=== PATIENT | male | born 1940 | race Caucasian/White ===

== ENCOUNTER 2018-02-25 09:40 | Day surgery (SDC) | payer MEDICARE, BC ==
[~2018-02-25 09:40] MED LIST: CHOL100046 PO; CITA10TA9 PO; CLOP75TA35 PO; CYAN-19 PO; FLO0.4C PO; GABA-338 PO; NIA500ERT PO; TIM0.5OS OP; VITC500T PO
== END 2018-02-25 12:27 | disposition home or self-care (01) ==
LOC: WOUND CARE 09:40
PROVIDERS: ATTEND Surgery
DX: E11.621 Type 2 diabetes mellitus with foot ulcer (principal); L89.893 Pressure ulcer of other site, stage 3; L97.521 Non-pressure chronic ulcer of other part of left foot limited to breakdown of skin; L89.892 Pressure ulcer of other site, stage 2; L97.511 Non-pressure chronic ulcer of other part of right foot limited to breakdown of skin; E11.40 Type 2 diabetes mellitus with diabetic neuropathy, unspecified; I25.10 Atherosclerotic heart disease of native coronary artery without angina pectoris; I10 Essential (primary) hypertension; G47.30 Sleep apnea, unspecified; M10.9 Gout, unspecified; E78.00 Pure hypercholesterolemia, unspecified; F03.90 Unspecified dementia, unspecified severity, without behavioral disturbance, psychotic disturbance, mood disturbance, and anxiety; F32.9 Major depressive disorder, single episode, unspecified; Z79.899 Other long term (current) drug therapy; Z85.528 Personal history of other malignant neoplasm of kidney; Z90.5 Acquired absence of kidney; Z79.01 Long term (current) use of anticoagulants; Z95.1 Presence of aortocoronary bypass graft
CPT/HCPCS: 11042; 87070; 87075; 87077; 87102; 87176; 87186; A6021; A6222; L3260

== ENCOUNTER 2018-03-07 11:29 | Day surgery (SDC) | payer MEDICARE, BC ==
[2018-03-07] MEDS ORDERED: LIDOcaine 2% 5ml jelly ONE (12:53)
== END 2018-03-07 13:54 | disposition home or self-care (01) ==
LOC: WOUND CARE 11:29
PROVIDERS: ATTEND Surgery
DX: E11.621 Type 2 diabetes mellitus with foot ulcer (principal); L89.893 Pressure ulcer of other site, stage 3; L97.521 Non-pressure chronic ulcer of other part of left foot limited to breakdown of skin; L89.892 Pressure ulcer of other site, stage 2; L97.511 Non-pressure chronic ulcer of other part of right foot limited to breakdown of skin; E11.40 Type 2 diabetes mellitus with diabetic neuropathy, unspecified; I25.10 Atherosclerotic heart disease of native coronary artery without angina pectoris; I10 Essential (primary) hypertension; G47.30 Sleep apnea, unspecified; M10.9 Gout, unspecified; E78.00 Pure hypercholesterolemia, unspecified; F03.90 Unspecified dementia, unspecified severity, without behavioral disturbance, psychotic disturbance, mood disturbance, and anxiety; F32.9 Major depressive disorder, single episode, unspecified; Z79.899 Other long term (current) drug therapy; Z85.528 Personal history of other malignant neoplasm of kidney; Z90.5 Acquired absence of kidney; Z79.01 Long term (current) use of anticoagulants; Z95.1 Presence of aortocoronary bypass graft
CPT/HCPCS: 11042; A6021; A6206; A6209

== ENCOUNTER 2018-03-14 11:22 | Outpatient (CLI) | payer MEDICARE, BC | END 2018-03-14 12:40 | disposition home or self-care (01) | LOC: WOUND CARE 11:22 → EDSTATUS 11:30 → WOUND CARE 12:40 | PROVIDERS: ATTEND Surgery | DX: E11.621 Type 2 diabetes mellitus with foot ulcer (principal); L89.893 Pressure ulcer of other site, stage 3; L97.521 Non-pressure chronic ulcer of other part of left foot limited to breakdown of skin; L89.892 Pressure ulcer of other site, stage 2; L97.511 Non-pressure chronic ulcer of other part of right foot limited to breakdown of skin; E11.40 Type 2 diabetes mellitus with diabetic neuropathy, unspecified; I25.10 Atherosclerotic heart disease of native coronary artery without angina pectoris; I10 Essential (primary) hypertension; G47.30 Sleep apnea, unspecified; M10.9 Gout, unspecified; E78.00 Pure hypercholesterolemia, unspecified; F03.90 Unspecified dementia, unspecified severity, without behavioral disturbance, psychotic disturbance, mood disturbance, and anxiety; F32.9 Major depressive disorder, single episode, unspecified; Z79.899 Other long term (current) drug therapy; Z85.828 Personal history of other malignant neoplasm of skin; Z90.5 Acquired absence of kidney; Z79.01 Long term (current) use of anticoagulants; Z95.1 Presence of aortocoronary bypass graft | CPT/HCPCS: 36415; 83036; 99211; A4414; A6021; A6206 ==

== ENCOUNTER 2018-03-21 11:32 | Day surgery (SDC) | payer MEDICARE, BC ==
[2018-03-21] MEDS ORDERED: LIDOcaine 2% 5ml jelly ONE (12:02)
== END 2018-03-21 13:06 | disposition home or self-care (01) ==
LOC: WOUND CARE 11:32
PROVIDERS: ATTEND Surgery
DX: E11.621 Type 2 diabetes mellitus with foot ulcer (principal); L89.893 Pressure ulcer of other site, stage 3; L97.521 Non-pressure chronic ulcer of other part of left foot limited to breakdown of skin; L89.892 Pressure ulcer of other site, stage 2; L97.511 Non-pressure chronic ulcer of other part of right foot limited to breakdown of skin; E11.40 Type 2 diabetes mellitus with diabetic neuropathy, unspecified; E11.65 Type 2 diabetes mellitus with hyperglycemia; I25.10 Atherosclerotic heart disease of native coronary artery without angina pectoris; I10 Essential (primary) hypertension; G47.30 Sleep apnea, unspecified; M10.9 Gout, unspecified; E78.00 Pure hypercholesterolemia, unspecified; F03.90 Unspecified dementia, unspecified severity, without behavioral disturbance, psychotic disturbance, mood disturbance, and anxiety; F32.9 Major depressive disorder, single episode, unspecified; Z79.899 Other long term (current) drug therapy; Z85.828 Personal history of other malignant neoplasm of skin; Z90.5 Acquired absence of kidney; Z79.01 Long term (current) use of anticoagulants; Z95.1 Presence of aortocoronary bypass graft
CPT/HCPCS: 11042; 36416; 82948; A6021; A6206; A6209

== ENCOUNTER 2018-03-28 11:31 | Day surgery (SDC) | payer MEDICARE, BC | END 2018-03-28 13:29 | disposition home or self-care (01) | LOC: WOUND CARE 11:31 | PROVIDERS: ATTEND Surgery | DX: E11.621 Type 2 diabetes mellitus with foot ulcer (principal); L89.893 Pressure ulcer of other site, stage 3; L97.521 Non-pressure chronic ulcer of other part of left foot limited to breakdown of skin; L89.892 Pressure ulcer of other site, stage 2; L97.511 Non-pressure chronic ulcer of other part of right foot limited to breakdown of skin; E11.40 Type 2 diabetes mellitus with diabetic neuropathy, unspecified; E11.65 Type 2 diabetes mellitus with hyperglycemia; I25.10 Atherosclerotic heart disease of native coronary artery without angina pectoris; I10 Essential (primary) hypertension; G47.30 Sleep apnea, unspecified; M10.9 Gout, unspecified; E78.00 Pure hypercholesterolemia, unspecified; F03.90 Unspecified dementia, unspecified severity, without behavioral disturbance, psychotic disturbance, mood disturbance, and anxiety; F32.9 Major depressive disorder, single episode, unspecified; Z79.899 Other long term (current) drug therapy; Z85.828 Personal history of other malignant neoplasm of skin; Z90.5 Acquired absence of kidney; Z79.01 Long term (current) use of anticoagulants; Z95.1 Presence of aortocoronary bypass graft | CPT/HCPCS: 11044; 36416; 82948; A4414; A6021; A6212; A6222; 88305; 88311 ==

== ENCOUNTER 2018-04-02 15:32 | Emergency (ER) | payer MEDICARE, BC ==
[~2018-04-02] VITALS: Ht 165.1 cm; Wt 72.0 kg
[2018-04-02 16:37] LABS: BASOPHILS # (AUTO) 0.1 X10'3 (0-0.2); BASOPHILS % (AUTO) 0.4 % (0-1); EOSINOPHILS # (AUTO) 0.1 X10'3 (0-0.9); EOSINOPHILS % (AUTO) 0.6 % (0-6); HEMATOCRIT 32.2 % (42.0-52.0); HEMOGLOBIN 10.7 g/dl (14.0-17.9); LYMPHOCYTES # (AUTO) 3.2 X10'3 (1.1-4.8); LYMPHOCYTES % (AUTO) 24.3 % (21-51); MEAN CORPUSCULAR HEMOGLOBIN 27.8 PG (27.0-31.0); MEAN CORPUSCULAR HGB CONC 33.4 % (33.0-36.5); MEAN CORPUSCULAR VOLUME 83.2 FL (78-98); MEAN PLATELET VOLUME 8.3 FL (7.4-10.4); MONOCYTES # (AUTO) 1.1 X10'3 (0-0.9); MONOCYTES % (AUTO) 8.6 % (2-12); NEUTROPHILS # (AUTO) 8.6 X10'3 (1.8-7.7); NEUTROPHILS % (AUTO) 66.1 % (42-75); PLATELET COUNT 325 X10'3 (140-440); RED BLOOD COUNT 3.87 X10'6 (4.70-6.10); RED CELL DISTRIBUTION WIDTH 14.4 % (11.5-14.5)
[2018-04-02 16:46] LABS: PARTIAL THROMBOPLASTIN TIME 28 SECONDS (22-32); PROTHROMBIN TIME 10.5 SECONDS (9.0-12.0)
[2018-04-02 16:52] LABS: ALANINE AMINOTRANSFERASE 26 U/L (12-78); ALBUMIN 2.9 G/DL (3.4-5.0); ALBUMIN/GLOBULIN RATIO 0.6 (1.1-1.5); ALKALINE PHOSPHATASE 69 IU/L (46-116); ANION GAP 13 (8-16); ASPARTATE AMINO TRANSFERASE 21 U/L (10-37); BILIRUBIN,TOTAL 0.4 MG/DL (0.1-1.0); BLOOD UREA NITROGEN 29 MG/DL (7-18); BUN/CREATININE RATIO 21.5 (5.4-32.0); CALCIUM 9.4 MG/DL (8.5-10.1); CHLORIDE 101 MMOL/L (99-107); CREATININE 1.35 MG/DL (0.60-1.10); GLUCOSE 103 MG/DL (70-104); POTASSIUM 3.9 MMOL/L (3.5-5.1); SODIUM 138 MMOL/L (135-145); TOTAL CARBON DIOXIDE 24.4 MMOL/L (24-32); TOTAL PROTEIN 7.9 G/DL (6.4-8.2); eGFR 51 ML/MIN
[2018-04-02] MEDS ORDERED: levoFLOXACIN 500mg tablet PO ONE (17:10)
[2018-04-02] MEDS ORDERED: cephalexin 500mg capsule PO ONE (17:10)
[2018-04-02] MEDS ORDERED: CEPH500C5 PO (17:14)
[2018-04-02] MEDS ORDERED: LEVO250T2 PO (17:14)
[2018-04-02 17:52] VITALS: BP 132/79
== END 2018-04-02 17:54 | disposition home or self-care (01) ==
LOC: ER 15:33
DX: L03.116 Cellulitis of left lower limb (principal); I10 Essential (primary) hypertension; Z95.5 Presence of coronary angioplasty implant and graft; Z95.1 Presence of aortocoronary bypass graft; Z88.2 Allergy status to sulfonamides; Z79.899 Other long term (current) drug therapy
CPT/HCPCS: 36415; 80053; 83605; 84145; 85025; 85610; 85730; 87040; 99284; A6255; A6449

== ENCOUNTER 2018-04-04 11:42 | Day surgery (SDC) | payer MEDICARE, BC ==
[~2018-04-04 11:42] MED LIST changes: +CEPH500C5 PO; +LEVO250T2 PO
[2018-04-04] MEDS ORDERED: LIDOcaine 2% 5ml jelly ONE (12:21)
== END 2018-04-04 13:14 | disposition home or self-care (01) ==
LOC: WOUND CARE 11:42
PROVIDERS: ATTEND Surgery
DX: E11.621 Type 2 diabetes mellitus with foot ulcer (principal); L89.893 Pressure ulcer of other site, stage 3; L97.521 Non-pressure chronic ulcer of other part of left foot limited to breakdown of skin; L89.892 Pressure ulcer of other site, stage 2; L97.518 Non-pressure chronic ulcer of other part of right foot with other specified severity; E11.40 Type 2 diabetes mellitus with diabetic neuropathy, unspecified; E11.65 Type 2 diabetes mellitus with hyperglycemia; I25.10 Atherosclerotic heart disease of native coronary artery without angina pectoris; I10 Essential (primary) hypertension; G47.30 Sleep apnea, unspecified; M10.9 Gout, unspecified; E78.00 Pure hypercholesterolemia, unspecified; F03.90 Unspecified dementia, unspecified severity, without behavioral disturbance, psychotic disturbance, mood disturbance, and anxiety; F32.9 Major depressive disorder, single episode, unspecified; Z79.899 Other long term (current) drug therapy; Z85.828 Personal history of other malignant neoplasm of skin; Z90.5 Acquired absence of kidney; Z79.01 Long term (current) use of anticoagulants; Z95.1 Presence of aortocoronary bypass graft
CPT/HCPCS: 11043; 36416; 82948; A6021; A6206; A6209

== ENCOUNTER 2018-04-18 11:55 | Day surgery (SDC) | payer MEDICARE, BC ==
[2018-04-18] MEDS: LIDOcaine 2% 5ml jelly ONE (12:18)
== END 2018-04-18 13:36 | disposition home or self-care (01) ==
LOC: WOUND CARE 11:55
PROVIDERS: ATTEND Surgery
DX: E11.621 Type 2 diabetes mellitus with foot ulcer (principal); L89.893 Pressure ulcer of other site, stage 3; L97.521 Non-pressure chronic ulcer of other part of left foot limited to breakdown of skin; L89.892 Pressure ulcer of other site, stage 2; L97.512 Non-pressure chronic ulcer of other part of right foot with fat layer exposed; E11.40 Type 2 diabetes mellitus with diabetic neuropathy, unspecified; E11.65 Type 2 diabetes mellitus with hyperglycemia; I25.10 Atherosclerotic heart disease of native coronary artery without angina pectoris; I10 Essential (primary) hypertension; G47.30 Sleep apnea, unspecified; M10.9 Gout, unspecified; E78.00 Pure hypercholesterolemia, unspecified; F03.90 Unspecified dementia, unspecified severity, without behavioral disturbance, psychotic disturbance, mood disturbance, and anxiety; F32.9 Major depressive disorder, single episode, unspecified; Z79.899 Other long term (current) drug therapy; Z85.828 Personal history of other malignant neoplasm of skin; Z90.5 Acquired absence of kidney; Z79.01 Long term (current) use of anticoagulants; Z95.1 Presence of aortocoronary bypass graft
CPT/HCPCS: 11042; 36416; 82948; A6021; A6206; A6209; A6222

== ENCOUNTER 2018-04-25 11:35 | Day surgery (SDC) | payer MEDICARE, BC | END 2018-04-25 13:05 | disposition home or self-care (01) | LOC: WOUND CARE 11:35 | PROVIDERS: ATTEND Surgery | DX: E11.621 Type 2 diabetes mellitus with foot ulcer (principal); L89.893 Pressure ulcer of other site, stage 3; L97.521 Non-pressure chronic ulcer of other part of left foot limited to breakdown of skin; L89.892 Pressure ulcer of other site, stage 2; L97.512 Non-pressure chronic ulcer of other part of right foot with fat layer exposed; E11.40 Type 2 diabetes mellitus with diabetic neuropathy, unspecified; E11.65 Type 2 diabetes mellitus with hyperglycemia; I25.10 Atherosclerotic heart disease of native coronary artery without angina pectoris; I10 Essential (primary) hypertension; G47.30 Sleep apnea, unspecified; M10.9 Gout, unspecified; E78.00 Pure hypercholesterolemia, unspecified; F03.90 Unspecified dementia, unspecified severity, without behavioral disturbance, psychotic disturbance, mood disturbance, and anxiety; F32.9 Major depressive disorder, single episode, unspecified; Z79.899 Other long term (current) drug therapy; Z85.828 Personal history of other malignant neoplasm of skin; Z90.5 Acquired absence of kidney; Z79.01 Long term (current) use of anticoagulants; Z95.1 Presence of aortocoronary bypass graft | CPT/HCPCS: 11042; 36416; 82948; A4414; A6021; A6209; A6222; A6446 ==

== ENCOUNTER 2018-05-02 11:39 | Day surgery (SDC) | payer MEDICARE, BC | END 2018-05-02 13:02 | disposition home or self-care (01) | LOC: WOUND CARE 11:39 | PROVIDERS: ATTEND Surgery | DX: E11.621 Type 2 diabetes mellitus with foot ulcer (principal); L89.893 Pressure ulcer of other site, stage 3; L97.521 Non-pressure chronic ulcer of other part of left foot limited to breakdown of skin; L89.892 Pressure ulcer of other site, stage 2; L97.512 Non-pressure chronic ulcer of other part of right foot with fat layer exposed; E11.40 Type 2 diabetes mellitus with diabetic neuropathy, unspecified; E11.65 Type 2 diabetes mellitus with hyperglycemia; I25.10 Atherosclerotic heart disease of native coronary artery without angina pectoris; I10 Essential (primary) hypertension; G47.30 Sleep apnea, unspecified; M10.9 Gout, unspecified; E78.00 Pure hypercholesterolemia, unspecified; F03.90 Unspecified dementia, unspecified severity, without behavioral disturbance, psychotic disturbance, mood disturbance, and anxiety; F32.9 Major depressive disorder, single episode, unspecified; Z79.899 Other long term (current) drug therapy; Z85.828 Personal history of other malignant neoplasm of skin; Z90.5 Acquired absence of kidney; Z79.01 Long term (current) use of anticoagulants; Z95.1 Presence of aortocoronary bypass graft | CPT/HCPCS: 15275; 36416; 82948; A6209; A6222; A6446; Q4131 ==

== ENCOUNTER 2018-05-09 11:41 | Day surgery (SDC) | payer MEDICARE, BC ==
[~2018-05-09 11:41] MED LIST changes: -LEVO250T2 PO
[2018-05-09] MEDS ORDERED: LIDOcaine/PRILOcaine 5gm cream TP ONE (12:14)
== END 2018-05-09 12:41 | disposition home or self-care (01) ==
LOC: WOUND CARE 11:41
PROVIDERS: ATTEND Surgery
DX: E11.621 Type 2 diabetes mellitus with foot ulcer (principal); L89.893 Pressure ulcer of other site, stage 3; L97.522 Non-pressure chronic ulcer of other part of left foot with fat layer exposed; L89.892 Pressure ulcer of other site, stage 2; L97.512 Non-pressure chronic ulcer of other part of right foot with fat layer exposed; E11.40 Type 2 diabetes mellitus with diabetic neuropathy, unspecified; E11.65 Type 2 diabetes mellitus with hyperglycemia; I25.10 Atherosclerotic heart disease of native coronary artery without angina pectoris; I10 Essential (primary) hypertension; G47.30 Sleep apnea, unspecified; M10.9 Gout, unspecified; E78.00 Pure hypercholesterolemia, unspecified; F03.90 Unspecified dementia, unspecified severity, without behavioral disturbance, psychotic disturbance, mood disturbance, and anxiety; F32.9 Major depressive disorder, single episode, unspecified; Z79.899 Other long term (current) drug therapy; Z85.828 Personal history of other malignant neoplasm of skin; Z90.5 Acquired absence of kidney; Z79.01 Long term (current) use of anticoagulants; Z95.1 Presence of aortocoronary bypass graft
CPT/HCPCS: 11042; 36416; 82948; A6021; A6206; A6209; A6446

== ENCOUNTER 2018-05-23 11:51 | Day surgery (SDC) | payer MEDICARE, BC ==
[~2018-05-23 11:51] MED LIST changes: -CEPH500C5 PO
[2018-05-23] MEDS ORDERED: CIPR-259 PO (17:07)
== END 2018-05-23 14:31 | disposition home or self-care (01) ==
LOC: WOUND CARE 11:51
PROVIDERS: ATTEND Surgery
DX: E11.621 Type 2 diabetes mellitus with foot ulcer (principal); L97.522 Non-pressure chronic ulcer of other part of left foot with fat layer exposed; E11.40 Type 2 diabetes mellitus with diabetic neuropathy, unspecified; E11.65 Type 2 diabetes mellitus with hyperglycemia; I25.10 Atherosclerotic heart disease of native coronary artery without angina pectoris; I10 Essential (primary) hypertension; G47.30 Sleep apnea, unspecified; M10.9 Gout, unspecified; E78.00 Pure hypercholesterolemia, unspecified; F03.90 Unspecified dementia, unspecified severity, without behavioral disturbance, psychotic disturbance, mood disturbance, and anxiety; F32.9 Major depressive disorder, single episode, unspecified; Z79.899 Other long term (current) drug therapy; Z85.828 Personal history of other malignant neoplasm of skin; Z90.5 Acquired absence of kidney; Z79.01 Long term (current) use of anticoagulants; Z95.1 Presence of aortocoronary bypass graft
CPT/HCPCS: 11042; 36416; 82948; 87070; 87075; 87076; 87077; 87102; 87185; 87186; A6021; A6206; A6446

== ENCOUNTER 2018-05-30 11:51 | Day surgery (SDC) | payer MEDICARE, BC ==
[~2018-05-30 11:51] MED LIST changes: +CIPR-259 PO
[2018-05-30] MEDS ORDERED: LIDOcaine/PRILOcaine 5gm cream TP ONE (12:36)
[2018-05-30] MEDS ORDERED: CLIN300C85 PO (15:59)
[2018-06-12] MEDS ORDERED: CEPH500C2 PO (14:29)
[2018-06-12] MEDS ORDERED: TRAM50TA2 PO (14:29)
[2018-06-12] MEDS ORDERED: CITA20TA2 PO (14:29)
[2018-06-12] MEDS ORDERED: KETO120S3 TOP (14:29)
[2018-06-12] MEDS ORDERED: RISP2TAB3 (14:29)
[2018-06-12] MEDS ORDERED: TRAZ-218 PO (14:29)
[2018-06-12] MEDS ORDERED: CIPR-230 PO (14:29)
[2018-06-12] MEDS ORDERED: LOSA100T15 PO (14:29)
[2018-06-12] MEDS ORDERED: ROSU20TA PO (14:29)
[2018-06-12] MEDS ORDERED: MEMA10TA PO (14:29)
== END 2018-05-30 13:30 | disposition home or self-care (01) ==
LOC: WOUND CARE 11:51
PROVIDERS: ATTEND Surgery
DX: E11.621 Type 2 diabetes mellitus with foot ulcer (principal); L97.522 Non-pressure chronic ulcer of other part of left foot with fat layer exposed; E11.40 Type 2 diabetes mellitus with diabetic neuropathy, unspecified; E11.65 Type 2 diabetes mellitus with hyperglycemia; I25.10 Atherosclerotic heart disease of native coronary artery without angina pectoris; I10 Essential (primary) hypertension; G47.30 Sleep apnea, unspecified; M10.9 Gout, unspecified; E78.00 Pure hypercholesterolemia, unspecified; F03.90 Unspecified dementia, unspecified severity, without behavioral disturbance, psychotic disturbance, mood disturbance, and anxiety; F32.9 Major depressive disorder, single episode, unspecified; Z79.899 Other long term (current) drug therapy; Z85.828 Personal history of other malignant neoplasm of skin; Z90.5 Acquired absence of kidney; Z79.01 Long term (current) use of anticoagulants; Z95.1 Presence of aortocoronary bypass graft
CPT/HCPCS: 11042; 36416; 82948; A6021; A6206; A6209; A6446; 97597

== ENCOUNTER 2018-06-04 13:41 | Outpatient (CLI) | payer MEDICARE, BC ==
[~2018-06-04 13:41] MED LIST changes: -CIPR-259 PO; +CLIN300C85 PO
[2018-06-12] MEDS ORDERED: CEPH500C2 PO (14:29)
[2018-06-12] MEDS ORDERED: KETO120S3 TOP (14:29)
[2018-06-12] MEDS ORDERED: CIPR-230 PO (14:29)
[2018-06-12] MEDS ORDERED: TRAZ-218 PO (14:29)
[2018-06-12] MEDS ORDERED: MEMA10TA PO (14:29)
[2018-06-12] MEDS ORDERED: ROSU20TA PO (14:29)
[2018-06-12] MEDS ORDERED: RISP2TAB3 (14:29)
[2018-06-12] MEDS ORDERED: CITA20TA2 PO (14:29)
[2018-06-12] MEDS ORDERED: TRAM50TA2 PO (14:29)
[2018-06-12] MEDS ORDERED: LOSA100T15 PO (14:29)
== END 2018-06-04 23:59 | disposition home or self-care (01) ==
LOC: 64 CT 13:41
PROVIDERS: ATTEND Surgery
DX: M86.9 Osteomyelitis, unspecified (principal); M1A.0720 Idiopathic chronic gout, left ankle and foot, without tophus (tophi)
CPT/HCPCS: 73700

== ENCOUNTER 2018-06-06 11:25 | Day surgery (SDC) | payer MEDICARE, BC ==
[2018-06-06] MEDS ORDERED: LIDOcaine/PRILOcaine 5gm cream TP ONE (12:27)
== END 2018-06-06 13:50 | disposition home or self-care (01) ==
LOC: WOUND CARE 11:25 → EDSTATUS 11:30 → WOUND CARE 13:50
PROVIDERS: ATTEND Surgery
DX: E11.621 Type 2 diabetes mellitus with foot ulcer (principal); L97.522 Non-pressure chronic ulcer of other part of left foot with fat layer exposed; E11.40 Type 2 diabetes mellitus with diabetic neuropathy, unspecified; E11.65 Type 2 diabetes mellitus with hyperglycemia; E11.69 Type 2 diabetes mellitus with other specified complication; M86.8X8 Other osteomyelitis, other site; I25.10 Atherosclerotic heart disease of native coronary artery without angina pectoris; I10 Essential (primary) hypertension; G47.30 Sleep apnea, unspecified; M10.9 Gout, unspecified; E78.00 Pure hypercholesterolemia, unspecified; F03.90 Unspecified dementia, unspecified severity, without behavioral disturbance, psychotic disturbance, mood disturbance, and anxiety; F32.9 Major depressive disorder, single episode, unspecified; Z79.899 Other long term (current) drug therapy; Z85.828 Personal history of other malignant neoplasm of skin; Z90.5 Acquired absence of kidney; Z79.01 Long term (current) use of anticoagulants; Z95.1 Presence of aortocoronary bypass graft
CPT/HCPCS: 11042; A6021; A6206; A6209; A6446

== ENCOUNTER 2018-06-13 11:40 | Outpatient (CLI) | payer MEDICARE, BC ==
[~2018-06-13 11:40] MED LIST changes: +CEPH500C2 PO; -CHOL100046 PO; +CIPR-230 PO; -CITA10TA9 PO; +CITA20TA2 PO; -CLIN300C85 PO; -CLOP75TA35 PO; -CYAN-19 PO; -FLO0.4C PO; -GABA-338 PO; +KETO120S3 TOP; +LOSA100T15 PO; +MEMA10TA PO; -NIA500ERT PO; +RISP2TAB3; +ROSU20TA PO; +TRAM50TA2 PO; +TRAZ-218 PO; -VITC500T PO
== END 2018-06-13 13:30 | disposition home or self-care (01) ==
LOC: WOUND CARE 11:40
PROVIDERS: ATTEND Surgery
DX: E11.621 Type 2 diabetes mellitus with foot ulcer (principal); L97.522 Non-pressure chronic ulcer of other part of left foot with fat layer exposed; E11.40 Type 2 diabetes mellitus with diabetic neuropathy, unspecified; E11.65 Type 2 diabetes mellitus with hyperglycemia; E11.69 Type 2 diabetes mellitus with other specified complication; M86.8X8 Other osteomyelitis, other site; I25.10 Atherosclerotic heart disease of native coronary artery without angina pectoris; I10 Essential (primary) hypertension; G47.30 Sleep apnea, unspecified; M10.9 Gout, unspecified; E78.00 Pure hypercholesterolemia, unspecified; F03.90 Unspecified dementia, unspecified severity, without behavioral disturbance, psychotic disturbance, mood disturbance, and anxiety; Z79.899 Other long term (current) drug therapy; Z85.828 Personal history of other malignant neoplasm of skin; Z90.5 Acquired absence of kidney; Z79.01 Long term (current) use of anticoagulants; Z95.1 Presence of aortocoronary bypass graft
CPT/HCPCS: 36416; 82948; 99215; A6206; A6266

== ENCOUNTER 2018-06-20 11:40 | Outpatient (CLI) | payer MEDICARE, BC | END 2018-06-20 13:40 | disposition home or self-care (01) | LOC: WOUND CARE 11:40 | PROVIDERS: ATTEND Surgery | DX: T81.89XD Other complications of procedures, not elsewhere classified, subsequent encounter (principal); E11.621 Type 2 diabetes mellitus with foot ulcer; L97.524 Non-pressure chronic ulcer of other part of left foot with necrosis of bone; E11.40 Type 2 diabetes mellitus with diabetic neuropathy, unspecified; E11.65 Type 2 diabetes mellitus with hyperglycemia; E11.69 Type 2 diabetes mellitus with other specified complication; M86.8X8 Other osteomyelitis, other site; I25.10 Atherosclerotic heart disease of native coronary artery without angina pectoris; I10 Essential (primary) hypertension; G47.30 Sleep apnea, unspecified; M10.9 Gout, unspecified; E78.00 Pure hypercholesterolemia, unspecified; F03.90 Unspecified dementia, unspecified severity, without behavioral disturbance, psychotic disturbance, mood disturbance, and anxiety; Z79.899 Other long term (current) drug therapy; Z85.828 Personal history of other malignant neoplasm of skin; Z90.5 Acquired absence of kidney; Z79.01 Long term (current) use of anticoagulants; Z95.1 Presence of aortocoronary bypass graft | CPT/HCPCS: 36416; 82948; 99215; A6266 ==